=== PATIENT | female | born 1955 | race Caucasian/White ===

== ENCOUNTER → 2023-10-02 12:53 | Outpatient (REF) | payer BC, SELFPAY | LOC: RCS 12:53 | PROVIDERS: ATTENDING PHYSICIAN Internal Medicine | DX: E78.5 Hyperlipidemia, unspecified (principal); R07.9 Chest pain, unspecified; E66.9 Obesity, unspecified | CPT/HCPCS: 93017 ==

== ENCOUNTER → 2024-03-07 11:05 | Outpatient (REF) | payer BC, SELFPAY | LOC: HWRAD 11:05 | PROVIDERS: ATTENDING PHYSICIAN Internal Medicine | DX: Z78.0 Asymptomatic menopausal state (principal) | CPT/HCPCS: 77080 ==

== ENCOUNTER → 2024-07-22 10:38 | Outpatient (REF) | payer BC, SELFPAY | LOC: HWRAD 10:38 | PROVIDERS: ATTENDING PHYSICIAN Internal Medicine | DX: R06.89 Other abnormalities of breathing (principal) | CPT/HCPCS: 71046 ==